=== PATIENT | female | born 1990 | race Caucasian/White ===

== ENCOUNTER 2017-12-09 11:15 | Emergency (ER) | payer MEDICAID ==
--- NOTE | 2017-12-09 11:43 | ED PDOC ---
Arrival/HPI - General Chief Complaint: Back Pain Time Seen by Provider: 12/09/17 11:28 Historian: Patient - History of Present Illness Narrative History of Present Illness (Text): 12/09/17 11:48 27 year old female, smoker, with past medical history of hypertension, presents to the Emergency department via EMS complaining of left-sided lumbar ridiculopathy since Sunday. Patient additionally complains of left-sided swelling in her armpit appearing as hidradenitis suppurativa since onset. Patient informs taking advil with no improvement to symptoms. Patient denies any allergies or any other past medical history. Patient informs tubal ligation and ventral hernia repair in the past. Patient denies any fever, chills, nausea , vomiting, diarrhea, abdominal pain, chest pain, shortness of breath or any other complaints. PMD: Dr. Loredo Time/Duration: < week Symptom Onset: Gradual Symptom Course: Unchanged Quality: Aching Activities at Onset: Light Context: Home Past Medical History - Provider Review Nursing Documentation Reviewed: Yes - Cardiac Hx Hypertension: Yes - Pulmonary Hx Respiratory Disorders: No - Neurological Hx Neurological Disorder: No - HEENT Hx HEENT Disorder: (Glasses) - Renal Hx Renal Disorder: No - Endocrine/Metabolic Hx Endocrine Disorders: No - Hematological/Oncological Hx Blood Disorders: No - Integumentary Hx Dermatological Disorder: No - Musculoskeletal/Rheumatological Hx Musculoskeletal Disorders: No - Gastrointestinal Hx Gastrointestinal Disorders: No - Genitourinary/Gynecological Hx Genitourinary Disorders: No - Psychiatric Hx Psychophysiologic Disorder: No Hx Substance Use: No - Surgical History Other/Comment: hernia repair Family/Social History - Physician Review Nursing Documentation Reviewed: Yes Family/Social History: Unknown Family HX Smoking Status: Current Some Days Smoker Hx Alcohol Use: No Hx Substance Use: No Allergies/Home Meds Allergies/Adverse Reactions: Allergies No Known Allergies Allergy (Verified 12/09/17 11:40) Home Medications: Home Meds Medication Instructions Recorded Confirmed cloNIDine [Catapres] 0.1 mg PO DAILY 12/09/17 12/09/17 Review of Systems - Physician Review All systems were reviewed & negative as marked: Yes - Review of Systems Constitutional: Normal. absent: Fevers Eyes: Normal ENT: Normal Respiratory: Normal. absent: SOB Cardiovascular: Normal. absent: Chest Pain Gastrointestinal: Normal. absent: Abdominal Pain, Diarrhea, Nausea, Vomiting Genitourinary Female: Normal Musculoskeletal: Back Pain Skin: Other (Hidradenitis suppurativa) Neurological: Normal Endocrine: Normal Hemo/Lymphatic: Normal Psychiatric: Normal Physical Exam Vital Signs Reviewed: Yes Vital Signs Temp Pulse Resp BP Pulse Ox 12/09/17 17:05 70 16 156/93 H 12/09/17 14:38 96 H 18 152/80 H 98 12/09/17 11:31 98.3 F 70 18 160/90 H 99 Temperature: Afebrile Blood Pressure: Hypertensive Pulse: Regular Respiratory Rate: Normal Appearance: Positive for: Well-Appearing, Non-Toxic, Comfortable Pain Distress: None Mental Status: Positive for: Alert and Oriented X 3 - Systems Exam Head: Present: Atraumatic, Normocephalic Pupils: Present: PERRL Extroacular Muscles: Present: EOMI Conjunctiva: Present: Normal Mouth: Present: Moist Mucous Membranes Neck: Present: Normal Range of Motion Respiratory/Chest: Present: Clear to Auscultation, Good Air Exchange. No: Respiratory Distress, Accessory Muscle Use Cardiovascular: Present: Regular Rate and Rhythm, Normal S1, S2. No: Murmurs Abdomen: Present: Normal Bowel Sounds. No: Tenderness, Distention, Peritoneal Signs Back: Present: Other (tender around sciatic notch) Upper Extremity: Present: Normal Inspection. No: Cyanosis, Edema Lower Extremity: Present: Normal Inspection. No: Edema Neurological: Present: GCS=15, CN II-XII Intact, Speech Normal Skin: Present: Warm, Dry, Normal Color, Abscess (left axillary). No: Rashes Psychiatric: Present: Alert, Oriented x 3, Normal Insight, Normal Concentration Medical Decision Making ED Course and Treatment: 12/09/17 11:54 Impression: 27 year old female presents to the Emergency department for left sided lumbar ridiculopathy. Plan: -- CT of lumbar spine -- Sulfamethoxazole -- Oxycodone -- Toradol -- Zofran -- methylprednisolone acetate -- Reassess and disposition Progress Notes: 12/09/17 11:59 Patient informs she is hungry and requests something to eat. Gramcrackers were provided. 12/09/17 15:55 CT of lumbar spine reviewed by radiologist, shows: There is a large central and left parasagittal disc herniation at the L5 level which with inferior left-sided and slightly central subligamentous extension of disc material on to nearly the S2 level. Significant compressive effects on the left S1 nerve roots with moderate compression on the left anterolateral border of the thecal sac which is displaced posteriorly and to the right. There are 3 rounded mass lesions in the right suprarenal region of uncertain etiology. Followup postcontrast CT scan of the abdomen pelvis recommended for further evaluation. 12/09/17 16:[address] results with patient, who is aware and agrees with plan. Patient appeared dissatisfied with result but shows understanding and agrees for further evaluation. 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 Absent normal spleen with right sided splenules instead seen. Midline position of the liver. 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 Right -sided stomach. Right-sided pancreas. Azyguous continuation of the IVC. Further non- emergent workup is recommended. - Lab Interpretations Lab Results: 12/09/17 16:50 12/09/17 16:50 Lab Results 12/09/17 18:00: Urine Color Yellow, Urine Appearance Clear, Urine pH 7.0, Ur Specific [place] 1.010, Urine Protein Negative, Urine Glucose (UA) Negative, Urine Ketones Negative, Urine Blood Negative, Urine Nitrate Negative, Urine Bilirubin Negative, Urine Urobilinogen 0.2, Ur Leukocyte Esterase Negative 12/09/17 16:50: Sodium 143, Potassium 3.9, Chloride 101, Carbon Dioxide 30, Anion Gap 16, BUN 9, Creatinine 0.8, Est GFR ( Amer) > 60, Est GFR (Non- Af Amer) > 60, Random Glucose 96, Calcium 10.5, Total Bilirubin 0.4, AST 35, ALT 40, Alkaline Phosphatase 67, Total Protein 7.9, Albumin 4.2, Globulin 3.7, Albumin/Globulin Ratio 1.1, Lipase 386 H 12/09/17 16:50: WBC 9.6, RBC 5.05, Hgb 13.7, Hct 43.0, MCV 85.1, MCH 27.1, MCHC 31.9, RDW 14.8 H, Plt Count 367, MPV 10.7, Gran % 55.2, Lymph % (Auto) 34.4, George % (Auto) 8.7 H, Eos % (Auto) 1.4 L, Baso % (Auto) 0.3, Gran # 5.28, Lymph # (Auto) 3.3, George # (Auto) 0.8 H, Eos # (Auto) 0.1, Baso # (Auto) 0.03 - RAD Interpretation Radiology Orders: 12/09/17 11:48 LUMBAR SPINE W/O CONTRAST [CT] Stat 12/09/17 16:20 ABD PELVIS PO & IV CONTRAST [CT] Stat - Medication Orders Current Medication Orders: Discontinued Medications Ketorolac Tromethamine (Toradol) 60 mg IM STAT STA Stop: 12/09/17 11:49 Last Admin: 12/09/17 12:05 Dose: 60 mg MAR Pain Assessment Document 12/09/17 12:05 RR (Rec: 12/09/17 12:45 RR [id number]) Pain Reassessment Is this a pain reassessment? Yes Sleep Is patient sleeping during reassessment? No Presence of Pain Presence of Pain Yes Location Left, Right or Bilateral Left Pain Location Body Site Leg IM Administration Charges Document 12/09/17 12:05 RR (Rec: 12/09/17 12:45 RR [id number]) Injection Site MAR Injection Site Left Deltoid Charges for Administration # of IM Administrations 1 Methylprednisolone Acetate (Depo-Medrol) 80 mg IM STAT STA Stop: 12/09/17 11:49 Last Admin: 12/09/17 12:05 Dose: 80 mg IM Administration Charges Document 12/09/17 12:05 RR (Rec: 12/09/17 12:56 RR [id number]) Injection Site MAR Injection Site Left Deltoid Charges for Administration # of IM Administrations 1 Ondansetron HCl (Zofran Odt) 8 mg PO STAT STA Stop: 12/09/17 11:49 Last Admin: 12/09/17 12:05 Dose: 8 mg Oxycodone/Acetaminophen (Percocet 5/325 Mg Tab) 2 tab PO STAT STA Stop: 12/09/17 11:49 Last Admin: 12/09/17 12:05 Dose: 2 tab MAR Pain Assessment Document 12/09/17 12:05 RR (Rec: 12/09/17 12:44 RR [id number]) Pain Reassessment Is this a pain reassessment? Yes Sleep Is patient sleeping during reassessment? No Presence of Pain Presence of Pain Yes Pain Scale Used Pain Scale Used Numeric Location Left, Right or Bilateral Left Pain Location Body Site Leg Description Description Constant Intensity of Pain at present 8 Oxycodone/Acetaminophen (Percocet 5/325 Mg Tab) 2 tab PO STAT STA Stop: 12/09/17 18:09 Last Admin: 12/09/17 18:34 Dose: 2 tab MAR Pain Assessment Document 12/09/17 18:34 ANITA (Rec: 12/09/17 18:34 ANITA [id number]) Pain Reassessment Is this a pain reassessment? Yes Presence of Pain Presence of Pain Yes Pain Scale Used Pain Scale Used Numeric Location Upper or Lower Lower Pain Location Body Site Back Description Description Sharp Intensity of Pain at present 10 Trimethoprim/Sulfamethoxazole (Bactrim Ds Tab) 1 tab PO STAT STA PRN Reason: Protocol Stop: 12/09/17 11:50 Last Admin: 12/09/17 12:05 Dose: 1 tab - PA / PARALEGAL SPECIALIST / Resident Statement MD/DO has reviewed & agrees with the documentation as recorded. - Scribe Statement The provider has reviewed the documentation as recorded by the Scribe Nela Norris. All medical record entries made by the Scribe were at my direction and personally dictated by me. I have reviewed the chart and agree that the record accurately reflects my personal performance of the history, physical exam, medical decision making, and the department course for this patient. I have also personally directed, reviewed, and agree with the discharge instructions and disposition. Disposition/Present on Arrival - Present on Arrival Any Indicators Present on Arrival: No History of DVT/PE: No History of Uncontrolled Diabetes: No Urinary Catheter: No History of Decub. 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 The three lesions we thought we saw on the CT of your spine were actually splenic tissue. Follow this and your back/leg pain [sciatica] with your regular doctor. Return to us if any problems. Best- Dr. Sd Dumont Referrals: [facility] [place] - Follow up with primary [facility] [Outside] - Follow up with primary Forms: [employer] ([place])
[2017-12-09] MEDS ORDERED: Oxycodone/Acetaminophen 5/325 mg Tab PO STA ×2 (11:48→18:08)
[2017-12-09] MEDS ORDERED: MethylPREDNISolone Depo 40 mg/ml Inj IM STA (11:48)
[2017-12-09] MEDS ORDERED: Tmp-Smz 800 mg-160 mg DS Tab PO STA (11:49)
[2017-12-09 12:09] VITALS: TEMP 98.3; BMI 38.4
[2017-12-09 14:39] VITALS: O2SAT 98
--- NOTE | 2017-12-09 15:59 | CT ---
PROCEDURE: CT scan lumbar spine through HISTORY: Left sided lumbar radiculopathy COMPARISON: No prior TECHNIQUE: Radiation dose: Total exam DLP = 1522.61 mGy-cm. This CT exam was performed using one or more of the following dose reduction techniques: Automated exposure control, adjustment of the mA and/or kV according to patient size, and/or use of iterative reconstruction technique. FINDINGS: VERTEBRAE: Current study reveals no acute compression fractures nor retropulsed fragments. Vertebral bodies exhibit normal stature on. Vertebral bodies and facets normally aligned. DISCS/SPINAL CANAL/NEURAL FORAMINA: L1-2: Disc space height maintained. No disc herniation or significant disc bulge. Central canal and exit foramina adequate.. L2-3: Disc space height maintained. No disc herniation or significant disc bulge. Central canal and exit foramina adequate. L3-4: Disc space height maintained. No disc herniation or significant disc bulge. Central canal and exit foramina adequate. L4-5: Disc space height is maintained. No disc herniation or significant disc bulge. Central canal and exit foramina adequate. . L5-S1: There is disc space narrowing. Moderately large central and left parasagittal disc herniation with inferior subligamentous extension of disc material over a short to nearly the S2 level period disc of extends laterally into the lateral recess with significant compression of the left-sided S1 nerve root. There is also of compressive effects along the left anterolateral border of the thecal sac which is displaced posteriorly into the right. Disc extends slightly into the proximal inferior margin of the right exit foramen and to a lesser degree proximal inferior right exit foramen. Exit foramina appear adequate. . PARASPINAL SOFT TISSUES: Unremarkable. OTHER FINDINGS: Suspect the small approximately 2.6 mm right ovarian cyst. Followup nonemergent pelvic ultrasound could be performed for further evaluation if necessary. There are appear to be at least 3 rounded masses seen in the right suprarenal region, the superiorly located lesion measuring approximately 4.4 trans x 3.27 ap x 4.0 cm cc. The smaller more inferior and anteriorly located lesion which abuts the at aforementioned superiorly located mass measures approximately 2.9 trans x 2.6 AP x 2.2 cc. A 3rd somewhat inferolaterally located lesion is incompletely visualized. . IMPRESSION: There is a large central and left parasagittal disc herniation at the L5 level which with inferior left-sided and slightly central subligamentous extension of disc material on to nearly the S2 level. Significant compressive effects on the left S1 nerve roots with moderate compression on the left anterolateral border of the thecal sac which is displaced posteriorly and to the right. There are 3 rounded mass lesions in the right suprarenal region of uncertain etiology. Followup postcontrast CT scan of the abdomen pelvis recommended for further evaluation. These findings discussed with emergency room physician Tim at approximately 3:55 pm with written down and read back verification high this radiata
[2017-12-09] MEDS ORDERED: Iohexol 240 (50 ml) ONE (16:57)
[2017-12-09] MEDS ORDERED: Iodixanol 320 MG/ML 100 ML BOTTLE IV ONE (16:59)
[2017-12-09 17:05] VITALS: BP 156/93; PULSE 70; RESP 16
[2017-12-09 17:08] LABS: BASO # 0.03 K/mm3 (0.0-2.0); BASO % 0.3 % (0.0-3.0); EOS # 0.1 (0.0-0.7); EOS % 1.4 % (1.5-5.0); GRAN # 5.28 (1.4-6.5); GRAN % 55.2 % (50.0-68.0); HEMOGLOBIN 13.7 g/dL (12.0-16.0); LYMPH # 3.3 (1.2-3.4); LYMPH % 34.4 % (22.0-35.0); MEAN CELL VOLUME 85.1 fl (80.0-105.0); MEAN CORPUSCULAR HEMOGLOBIN 27.1 pg (25.0-35.0); MEAN CORPUSCULAR HGB CONC 31.9 g/dl (31.0-37.0); MEAN PLATELET VOLUME 10.7 fl (7.0-11.0); MONO # 0.8 (0.1-0.6); MONO % 8.7 % (1.0-6.0); RBC 5.05 10^6/uL (3.5-6.1); RED CELL DISTRIBUTION WIDTH 14.8 % (11.5-14.5); WHITE BLOOD COUNT 9.6 10^3/ul (4.5-11.0)
[2017-12-09 17:14] LABS: ALB/GLOB RATIO 1.1 (1.1-1.8); ALBUMIN 4.2 g/dL (3.0-4.8); ALT/SGPT 40 U/L (7-56); AST/SGOT 35 U/L (14-36); BLOOD UREA NITROGEN 9 mg/dL (7-21); CALCIUM 10.5 mg/dL (8.4-10.5); GFR AFRICAN-AMERICAN > 60; GFR NON-AFRICAN AMERICAN > 60; LIPASE 386 U/L (23-300)
[2017-12-09 18:26] LABS: URINE BILIRUBIN NEGATIVE (NEGATIVE); URINE BLOOD NEGATIVE (NEGATIVE); URINE GLUCOSE (UA) NEGATIVE (NEGATIVE); URINE LEUKOCYTE ESTERASE NEGATIVE Leu/uL (NEGATIVE); URINE NITRATE NEGATIVE (NEGATIVE); URINE PROTEIN NEGATIVE mg/dL (<30 mg/dL); URINE UROBILINOGEN 0.2 E.U./dL (<1 E.U./dL)
[2017-12-09 18:27] LABS: URINE APPEARANCE CLEAR (CLEAR); URINE COLOR YELLOW (YELLOW)
--- NOTE | 2017-12-09 21:20 | CT ---
EXAM: CT Abdomen and Pelvis With Intravenous Contrast EXAM DATE/TIME: 12/09/2017 4:20 PM CLINICAL HISTORY: 27 years old, female; Pain; Other: Back pain; Prior surgery; Surgery type: Hernia repair; Additional info: Patient had CT l spine showed lesions, need clarif TECHNIQUE: Axial computed tomography images of the abdomen and pelvis with intravenous contrast. All CT scans at this facility use one or more dose reduction techniques, viz.: automated exposure control; ma/kV adjustment per patient size (including targeted exams where dose is matched to indication; i.e. head); or iterative reconstruction technique. Coronal and sagittal reformatted images were created and reviewed. CONTRAST: 141 mL of omni 350 administered intravenously. COMPARISON: No relevant prior studies available. FINDINGS: LIMITATIONS: Mild streak/motion artifact. LOWER THORAX: Cardiac situs appears normal. ABDOMEN: LIVER: Liver is abnormal appearance. It is bilateral in location, extending into the left abdomen. Portal vein is midline in location. GALLBLADDER AND BILE DUCTS: Gallbladder is right-sided in location as expected. No CT evidence of acute cholecystitis. PANCREAS: Pancreas is reversed in position, with the head located in the left abdomen, and the body and tail located in the right abdomen. No CT evidence of acute pancreatitis. SPLEEN: Normal spleen is not identified. There are 3, well defined soft tissue nodules in the right upper abdomen, the largest measuring 4.5 cm, which are suspicious for multiple right-sided splenules. ADRENALS: No acute abnormality of the adrenal glands identified. KIDNEYS AND URETERS: No acute abnormality of the kidneys identified. No evidence of significant hydrouereteronephrosis. STOMACH AND BOWEL: Stomach is abnormally located, and the right abdomen. Superior mesenteric vein is located to the left of the superior mesenteric artery, suspicious for the ligament of Treitz appears left-sided in location, as expected in the normal bases, however. No acute abnormality of the bowel identified. Orientation of the colon appears normal with the cecum being right-sided. No evidence of bowel obstruction. APPENDIX: Appendix is seen, and is within normal limits in appearance. It is midline in location.. PELVIS: BLADDER: No acute abnormality of the bladder identified. REPRODUCTIVE: 1.8 cm cystic lesion with a thin, enhancing and collapsed soft tissue rim in the right ovary. This has an appearance suggestive of a recently ruptured/involuting ovarian cyst, such as a corpus luteal cyst. Followup pelvic ultrasound as clinically indicated. Heterogeneous enhancement pattern of the uterus. Uterus is mildly enlarged, and has a lobulated contour. Findings could be secondary to diffuse fibroid replacement. ABDOMEN and PELVIS: INTRAPERITONEAL SPACE: No evidence of free intraperitoneal air or fluid. BONES/JOINTS: Abnormal findings in the lumbar spine at L5-S1, which are described in detail in the separate dedicated lumbar spine CT report. SOFT TISSUES: Post operative scarring involving the anterior abdominal and pelvic wall soft tissues. 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 Abdominal aorta and infrarenal IVC are normal in location. LYMPH NODES: No evidence of diffuse lymphadenopathy. IMPRESSION: - CONSTELLATION OF FINDINGS HIGHLY SUSPICIOUS FOR SITUS AMBIGUOUS/HETEROTAXY SYNDROME IN THE ABDOMEN. Absent normal spleen, with right sided splenules instead seen. Midline position of the liver. 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 Right-sided stomach. Right-sided pancreas. Azygous continuation of the IVC. Further non-emergent workup is recommended. - See above for remaining findings.
== END 2017-12-09 22:00 | disposition home or self-care (01) ==
LOC: MERGE 11:15 → ED 11:15
DX: M54.30 Sciatica, unspecified side (principal); Q89.3 Situs inversus; I10 Essential (primary) hypertension; F17.200 Nicotine dependence, unspecified, uncomplicated
CPT/HCPCS: 72131; 74177; 80053; 81003; 83690; 85025; 96372; 99284; J1030; J1885; Q9966; Q9967